=== PATIENT | male | born 1940 | race Caucasian/White ===

== ENCOUNTER → 2018-08-02 08:34 | Outpatient (BNVA) | payer MEDICARE, BC, SELFPAY | PROVIDERS: PCP Internal Medicine; Visit Provider Psychiatry & Neurology Neurology | DX: H46.9 Unspecified optic neuritis (principal); G25.0 Essential tremor; E11.42 Type 2 diabetes mellitus with diabetic polyneuropathy; Z79.84 Long term (current) use of oral hypoglycemic drugs; I10 Essential (primary) hypertension | CPT/HCPCS: 99205; 99214 ==

== ENCOUNTER 2018-08-02 10:08 | Outpatient (CLI) | payer MEDICARE, BC, SELFPAY ==
[2018-08-02 12:25] LABS: Vitamin B12 1111 pg/mL (193-986)
[2018-08-02 12:29] LABS: ESR 10 MM/HR (1-20)
[2018-08-02 12:31] LABS: Folate > 20.0 ng/mL (8.6-20.0)
[2018-08-02 12:38] LABS: C-Reactive Protein 0.15 mg/dL (0.0-0.3)
[2018-08-03 10:32] LABS: Rheumatoid Factor <8 IU/mL (<12.5)
[2018-08-03 14:18] LABS: ANA Interpretation Negative (NEGAT)
[2018-08-08 11:05] LABS: Thiamine (Vitamin B1), WB 144 nmol/L (70-180)
== END 2018-08-02 10:28 ==
PROVIDERS: PCP Internal Medicine; Visit Provider Psychiatry & Neurology Neurology
DX: H46.9 Unspecified optic neuritis (principal)
CPT/HCPCS: 36415; 85652; 99205; 99214; 82565; 82607; 82746; 84425; 86038; 86140; 86431

== ENCOUNTER 2018-08-11 02:22 | Outpatient (CLI) | payer MEDICARE, BC, SELFPAY ==
--- NOTE | 2018-08-11 06:59 | DI.MRI_ITS ---
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 BRAIN AND ORBIT MRI: MRI examination of the brain and orbits was performed according to the usual protocol including pre and post contrast multiplanar high resolution imaging of the orbits. There is mild generalized cerebral atrophy. 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 Diffusion weighted imaging shows no evidence of cerebral infarction. Susceptibility weighted imaging shows no evidence of hemorrhage. There is normal flow void in the [place]ary[place] of [place] vasculature. The initial axial T2 weighted images show increased signal associated with the left optic nerve. Minimally increased signal may also be present involving right optic nerve. This abnormal signal in left optic nerve is again seen on high resolution T2 fat-sat imaging. There is also a questionable slightly increased signal in right optic nerve. Postcontrast imaging shows suggestion of subtle enhancement associated with left optic nerve. No convincing right optic nerve enhancement identified. The orbital contents otherwise appear normal. No chiasmatic lesion seen. No enhancement or mass identified in the brain. The temporal bone structures appear intact. CONCLUSION: Findings of abnormally high signal and enhancement in left optic nerve as described. Minimally abnormal signal and minimal enhancement may be present in right optic nerve as well. No significant additional lesions identified in the brain. Clinical correlation is requested regarding known MS or other known pathology in this patient.
[2018-08-11] MEDS: Gadoterate meglumine 20 ML VIAL 19 ML IVP (08:32)
[2018-08-11] MEDS: Normal Saline Flush 10 ML SYR IVP (08:33)
== END 2018-08-11 02:42 ==
PROVIDERS: PCP Internal Medicine; Visit Provider Psychiatry & Neurology Neurology
DX: H46.8 Other optic neuritis (principal); H47.092 Other disorders of optic nerve, not elsewhere classified, left eye; H54.7 Unspecified visual loss
CPT/HCPCS: 70553; 70543

== ENCOUNTER 2018-08-25 00:53 | Outpatient (RCR) | payer MEDICARE, BC, SELFPAY ==
[2018-08-21] MEDS: Normal Saline Flush 10 ML SYR IVP (08:57)
[2018-08-22] MEDS: Normal Saline Flush 10 ML SYR IVP (08:10)
[2018-08-23] MEDS: Normal Saline Flush 10 ML SYR IVP (08:18)
[2018-08-24] MEDS: Normal Saline Flush 10 ML SYR IVP (08:15)
[2018-08-25] MEDS: Normal Saline Flush 10 ML SYR IVP (08:30)
[2018-08-29 11:40] LABS: LHON mtDNA Evaluation NEGATIVE
[2018-08-29 11:50] LABS: Misc Referral (MAYO) See Comments
[2018-08-30 13:40] LABS: NMO/AQP4 IgG FACS Negative (Negative)
== END 2018-09-01 23:59 | disposition home or self-care (01) ==
LOC: INF 00:53
PROVIDERS: PCP Internal Medicine; Visit Provider Psychiatry & Neurology Neurology
DX: H46.9 Unspecified optic neuritis (principal)
CPT/HCPCS: 36415; 81401; 86255; 96365; 83891; 83892; 83894; 83898; 83909; 83912; J2930

== ENCOUNTER → 2018-09-07 08:40 | Outpatient (BNVA) | payer MEDICARE, BC, SELFPAY | PROVIDERS: PCP Internal Medicine; Visit Provider Psychiatry & Neurology Neurology | DX: H46.9 Unspecified optic neuritis (principal); E11.42 Type 2 diabetes mellitus with diabetic polyneuropathy; Z79.84 Long term (current) use of oral hypoglycemic drugs; I10 Essential (primary) hypertension | CPT/HCPCS: 99213 ==

== ENCOUNTER 2019-02-05 09:45 | Outpatient (REF) | payer MEDICARE, BC, SELFPAY ==
[2019-02-05 12:59] LABS: Anion Gap 12.2 mmol/L (3-11); BUN 20 mg/dL (7-18); CO2 27.8 mmol/L (21.0-32.0); CREATININE 1.13 mg/dL (0.70-1.30); Calcium 9.3 mg/dL (8.5-10.1); Calculated LDL 43 mg/dL; Chloride 101 mmol/L (98-107); Cholesterol 124 mg/dL (50-200); Glucose 220 mg/dL (70-100); HDL Cholesterol 41 mg/dL (40-60); Potassium 3.8 mmol/L (3.5-5.1); Sodium 141 mmol/L (136-145); Triglyceride 200 mg/dL (30-150)
== END 2019-02-05 10:05 ==
LOC: NCHCN 09:45
PROVIDERS: PCP Internal Medicine; Visit Provider Internal Medicine
DX: I10 Essential (primary) hypertension (principal); Z13.6 Encounter for screening for cardiovascular disorders
CPT/HCPCS: 80048; 80061

== ENCOUNTER 2019-09-28 20:28 | Emergency (ER) | payer MEDICARE, BC, SELFPAY ==
[2019-09-28 20:33] VITALS: BP 178/92; PULSE 102; TEMP 36.9; O2SAT 97
--- NOTE | 2019-09-28 20:47 | W.ED.GENAD ---
Discharge Plan Disposition Patient Disposition: HOME Condition: Stable Discharge Details Chief Complaint: Laceration Clinical Impression: Fracture, finger, distal phalanx, open, Avulsion of nail, Crush injury to finger Primary Care Provider: Tito Austin ED Provider: Delmi Zamarripa Home Meds and New Rx's Prescriptions: New cephalexin [Keflex] 500 mg capsule 500 mg PO QID 7 Days Qty: 28 RF: 0 Continued metformin 500 mg tablet 500 mg PO BID RF: 0 amlodipine 5 mg tablet 5 mg PO DAILY RF: 0 venlafaxine [Effexor XR] 75 MG capsule,extended release 24hr 75 mg PO DAILY RF: 0 aspirin [Ecotrin Low Strength] 81 MG tablet,delayed release (DR/EC) 81 mg PO DAILY RF: 0 nitroglycerin [Nitrostat] 0.4 MG tablet, sublingual 0.4 mg Sublingual PRN RF: 0 omeprazole [Prilosec] 20 MG capsule,delayed release(DR/EC) 20 mg PO DAILY RF: 0 losartan [Cozaar] 100 MG tablet 100 mg PO DAILY RF: 0 torsemide 5 MG tablet 5 mg PO DAILY RF: 0 yudqbktgorwu-ibikyyav-nyzoyx tablet 1 tab PO DAILY RF: 0 cyanocobalamin (vitamin B-12) [Vitamin B-12] 1,000 mcg tablet extended release 1,000 mcg PO DAILY RF: 0 Hold Instructions: Home Medication placed on hold at Doctor's office cholecalciferol (vitamin D3) 1,000 unit capsule 1,000 unit PO DAILY RF: 0 ibuprofen 800 MG tablet 800 mg PO TID PRN PRNQty: 30 RF: 0 Discharge Instructions Instructions: Finger Fracture (ED), Finger Laceration (ED), Crush Injury (ED) Additional Instructions: Keep wound clean and dry and covered. Take antibiotics until finished. Call orthopedics on Tuesday morning to schedule a follow-up appointment for reevaluation. Return to the emergency department if he develop any worsening or concerning symptoms such as fever, increased pain, redness or swelling. Referrals: Shaheen Nagy MD [ [facility] STAFF PHYSICIAN] - Discharge Data Discharge Physician: Delmi Zamarripa Medical Decision Making 79-year-old male presents with right fifth finger crush injury after caught between snowplow and another piece of equipment while attempting to lift snowplow. Unknown tetanus status. Tetanus given here. Nail removed by patient as only small part was left remaining. There is a laceration on volar aspect of distal fifth finger as well as jagged laceration through nail bed and distal dorsal finger. No fifth nail present. Patient referred for x-ray which notes fracture of distal phalanx. Finger was soaked in saline and Hibiclens. Patient was given 1 g of Keflex here. Chart notes an allergy to cefixime, however this causes shakes with no report of anaphylaxis. Case discussed with who states that patient has tolerated Keflex in the past. Keflex given to go as well as prescription. 7 sutures placed on dorsal aspect and 3 sutures placed on volar aspect. Patient placed in finger splint. Patient placed on orthopedic follow-up list. He was advised to call orthopedics on Tuesday morning for follow-up and possible suture removal. He was advised that he could return to the emergency department if directed by orthopedics for suture removal here in 7 days. Usual and customary return precautions given prior to discharge. Medical Records Medical records reviewed: Yes I reviewed the patient's medical records. Imaging Data Radiologic Study: Radiologist's impression: XR Right Finger(s) Exam date and time: 09/28/2019 9:00 PM Age: 79 years old Clinical indication: Injury or trauma; Injury history: Crush injury, pinky caught in hinge of snowplow; Initial encounter; Crushing; Right; Little finger; Injury date: 09/28/19 TECHNIQUE: Imaging protocol: XR Left fingers. Views: Minimum 2 views. COMPARISON: No relevant prior studies available. FINDINGS: Bones/joints: Fracture distal 5th phalanx. Skin defect. Degenerative changes of the 5th DIP joint. Soft tissues: Soft tissue swelling. IMPRESSION: Fractured 5th distal phalanx with skin defect. HPI General Mode of arrival: ambulatory. Date/Time Provider Initiated Documentation: 09/28/19 20:40. Limitations to Documentation: no limitations. Information obtained by: patient. HPI Narrative: Patient is a 79-year-old male who presents with right fifth finger injury after crushed between a piece of equipment and a snowplow when attempting to lift the snowplow into a trailer. Patient states the nail was hanging by a thread so he pulled it off near the base. He is unsure of his tetanus status. Related Data Home Medications Medication Instructions Recorded Confirmed aspirin [Ecotrin Low Strength] 81 mg PO DAILY tab-cap 04/22/14 09/28/19 losartan [Cozaar] 100 mg PO DAILY tab-cap 04/22/14 09/28/19 nitroglycerin [Nitrostat] 0.4 mg SUBLINGUAL PRN 04/22/14 09/28/19 omeprazole [Prilosec] 20 mg PO DAILY tab-cap 04/22/14 09/28/19 venlafaxine [Effexor XR] 75 mg PO DAILY tab-cap 04/22/14 09/28/19 ibuprofen 800 mg PO TID PRN PRN #30 tab 09/09/14 09/28/19 torsemide 5 mg PO DAILY tab-cap 04/20/17 09/28/19 cholecalciferol (vitamin D3) 25 1,000 unit PO DAILY 07/25/18 09/28/19 mcg (1,000 unit) capsule cyanocobalamin (vitamin B-12) 1,000 mcg PO DAILY 07/25/18 09/28/19 1,000 mcg tablet,extended release xdxdxcwtwmya-svuubtgf-zvkvqp 1 tab PO DAILY 07/25/18 09/28/19 amlodipine 5 mg tablet 5 mg PO DAILY 08/02/18 09/28/19 metformin 500 mg tablet 500 mg PO BID tab 08/02/18 09/28/19 cephalexin [Keflex] 500 mg PO QID 7 Days #28 cap 09/28/19 Previous Rx's Medication Instructions Recorded ibuprofen 800 mg PO TID PRN PRN #30 tab 09/09/14 cephalexin [Keflex] 500 mg PO QID 7 Days #28 cap 09/28/19 Allergies Allergy/AdvReac Type Severity Reaction Status Date / Time cefixime [From Suprax] AdvReac shakes Unverified 09/28/19 20:39 fluticasone propionate AdvReac nose bleeds Unverified 09/28/19 20:39 [From Flonase] hydrochlorothiazide AdvReac hypertensio Unverified 09/28/19 20:39 n General Stated Complaint: Laceration SKIP: 4 Review of Systems All systems reviewed & are unremarkable except as noted in HPI and below PFSH Social History Smoking/Tobacco Use Status: Former Tobacco Use Alcohol Intake: never Drug use: Never current occupation: Retired Do you feel safe at home: Yes Do you feel safe in your relationship?: Yes Exam Const General: cooperative, healthy appearing and no acute distress HENMT Head: normal to inspection Mouth: oral mucosae normal Eyes General: appearance normal, both eyes and all related structures Neck Neck: normal visual inspection Resp Effort & Inspection: normal respiratory effort and able to speak in complete sentences Cardio Rate: regular rate Skin General skin exam: no rashes or lesions noted Neuro General: patient alert, patient awake and patient oriented x3 Motor: muscle tone normal throughout Extrem Right upper extremity: hand Details: normal capillary refill, neuromotor exam normal (Normal flexion and extension, abduction and adduction to right fifth finger), neurosensory exam normal, tendon exam normal Location: of the 5th digit and normal ROM of fingers Hand/finger images: 1. 1.5 cm laceration on volar aspect of right fifth finger near the DIP joint. 2. 2 cm T-shaped jagged laceration extending through skin of nailbed and cuticle onto distal aspect of dorsal distal phalanx. No obvious foreign bodies noted. No obvious bony deformities noted. Psych Appearance: grossly normal Affect: normal affect Course Vital Signs Vital signs: Vital Signs Temperature 98.4 F 09/28/19 20:33 Pulse 102 H 09/28/19 20:33 Blood Pressure 178/92 H 09/28/19 20:33 Pulse Oximetry 97 09/28/19 20:33 Temperature 98.4 F 09/28/19 20:33 Temperature Source Skin 09/28/19 20:33 Pulse 102 H 09/28/19 20:33 Respiratory Effort Non-Labored 09/28/19 20:41 Blood Pressure 178/92 H 09/28/19 20:33 Blood Pressure Position Sitting 09/28/19 20:33 Pulse Oximetry 97 09/28/19 20:33 Oxygen Delivery Method Room Air 09/28/19 20:33 Oxygen Flow Rate 0 09/28/19 20:33 Pain Level 5 09/28/19 20:42 Procedures Laceration Laceration 1: Site: hand (5th finger) Side (If applicable): right Size (cm): 4 Description: irregular Depth: simple, single layer Local Anesthetic: Lidocaine 1% Amount of anesthesia used (mL): 5 Pre-repair: wound explored, irrigated extensively and deep structures intact Skin layer closed with: nylon Size (cm): 5-0 Number of sutures: 10 (3 on volar aspect, 7 on dorsal aspect) Technique: simple, interrupted
--- NOTE | 2019-09-28 20:59 | DI.RAD_ITS ---
EXAM: XR FINGER RT LITTLE CLINICAL HISTORY: r/o fx/foreign body distal phalanx. TECHNIQUE: 2D digital imaging was performed. COMPARISON: No exams were available for comparison FINDINGS: BONES: There is an acute fracture involving the proximal metaphysis of the distal phalanx of the righ t little finger. There is 1-2 mm of anterior displacement of the distal fracture noted. There is a lucency seen through the posterior aspect of the base of the distal phalanx suggesting a small avulse d fracture. This is best appreciated on the lateral view.. No bony destructive lesion is seen. JOINTS: No dislocation present. SOFT TISSUE: There is a soft tissue laceration in the distal finger. No radiopaque foreign body is s een. IMPRESSION: Minimally displaced fracture involving the distal phalanx of the right 5th finger as described above. DATA REPOSITORY: RADIATION DOSE DELIVERED:
--- NOTE | 2019-09-28 21:12 | DI.VRAD_ITS ---
Addendum created by Lila Tomlinson MD on 09/28/2019 11:14:57 PM EDT Per the technologist the images are of the right hand as labeled on the film. The order however states left fingers. The new order has been corrected stating right fingers. Initial report created on 09/28/2019 9:12:10 PM EDT PROCEDURE INFORMATION: Exam: XR Left Finger(s) Exam date and time: 09/28/2019 9:00 PM Age: 79 years old Clinical indication: Injury or trauma; Injury history: Crush injury, pinky caught in hinge of snowplow; Initial encounter; Crushing; Right; Little finger; Injury date: 09/28/19 TECHNIQUE: Imaging protocol: XR Left fingers. Views: Minimum 2 views. COMPARISON: No relevant prior studies available. FINDINGS: Bones/joints: Fracture distal 5th phalanx. Skin defect. Degenerative changes of the 5th DIP joint. Soft tissues: Soft tissue swelling. IMPRESSION: Fractured 5th distal phalanx with skin defect. Dictated and Authenticated by: Lila Tomlinson MD. Ordering:NEO Awad MD
[2019-09-28] MEDS: Cephalexin 500 MG CAP 1000 MG PO (21:44)
[2019-09-28 22:43] VITALS: BP 152/77; PULSE 84; RESP 20; TEMP 36.7; O2SAT 94
[2019-09-28 23:02] VITALS: BP 152/77; PULSE 84; RESP 20; TEMP 36.7; O2SAT 94
== END 2019-09-28 23:08 | disposition home or self-care (01) ==
PROVIDERS: Emergency Provider Physician Assistant; PCP Internal Medicine
DX: S67.197A Crushing injury of left little finger, initial encounter (principal); S62.636B Displaced fracture of distal phalanx of right little finger, initial encounter for open fracture; W23.1XXA Caught, crushed, jammed, or pinched between stationary objects, initial encounter
CPT/HCPCS: 12002; 26750; 90471; 73140

== ENCOUNTER 2019-10-01 09:46 | Emergency (ER) | payer MEDICARE, BC, SELFPAY ==
[2019-10-01 09:50] VITALS: BP 166/88; PULSE 95; RESP 16; TEMP 36.5; O2SAT 96
--- NOTE | 2019-10-01 09:57 | W.ED.GENAD ---
Discharge Plan Disposition Patient Disposition: HOME Condition: Stable Discharge Details Chief Complaint: Orthopedic Clinical Impression: Encounter for wound re-check Primary Care Provider: Tito Austin ED Provider: Delmi Zamarripa Home Meds and New Rx's Prescriptions: Continued metformin 500 mg tablet 500 mg PO BID RF: 0 amlodipine 5 mg tablet 5 mg PO DAILY RF: 0 venlafaxine [Effexor XR] 75 MG capsule,extended release 24hr 75 mg PO DAILY RF: 0 aspirin [Ecotrin Low Strength] 81 MG tablet,delayed release (DR/EC) 81 mg PO DAILY RF: 0 nitroglycerin [Nitrostat] 0.4 MG tablet, sublingual 0.4 mg Sublingual PRN RF: 0 omeprazole [Prilosec] 20 MG capsule,delayed release(DR/EC) 20 mg PO DAILY RF: 0 losartan [Cozaar] 100 MG tablet 100 mg PO DAILY RF: 0 torsemide 5 MG tablet 5 mg PO DAILY RF: 0 hjuehvketdtc-qfcalnsz-wnvwcb tablet 1 tab PO DAILY RF: 0 cyanocobalamin (vitamin B-12) [Vitamin B-12] 1,000 mcg tablet extended release 1,000 mcg PO DAILY RF: 0 Hold Instructions: Home Medication placed on hold at Doctor's office cholecalciferol (vitamin D3) 1,000 unit capsule 1,000 unit PO DAILY RF: 0 ibuprofen 800 MG tablet 800 mg PO TID PRN PRNQty: 30 RF: 0 cephalexin [Keflex] 500 mg capsule 500 mg PO QID 7 Days Qty: 28 RF: 0 Discharge Instructions Instructions: Care For Your Stitches (ED) Additional Instructions: Keep wound clean, dry and covered. If dressing becomes wet or dirty, you can remove, wash finger with soap and water and then pat dry and replace dressing. If you are resting at home, you can keep the wound open to air without dressing. If there is risk of contamination, be sure to cover wound with dressing. Take the antibiotics until finished. Follow-up with your scheduled appointment with orthopedics on morning. Return to the emergency department if you develop any worsening or concerning symptoms such as fever, increased pain, redness or swelling. Discharge Data Discharge Physician: Delmi Zamarripa Medical Decision Making 79yo M 3 days s/p crush injury with finger fracture, nail avulsion and suture placement to R 5th finger presents for dressing change. No acute complaints. Pt appears well and nontoxic. Wound is healing very well. No signs of cellulitis. Wound was washed with soap and water and bacitracin and tube gauze applied. Pt advised on proper wound care at home and was sent with supplies. Advised to f/u with scheduled appt with ortho on . Usual and customary return precautions given prior to discharge. Medical Records Medical records reviewed: Yes I reviewed the patient's medical records. HPI General Mode of arrival: ambulatory. Date/Time Provider Initiated Documentation: 10/01/19 09:47. Limitations to Documentation: no limitations. Information obtained by: patient. HPI Narrative: Pt is a 79yo M 3 days s/p crush injury to R 5th finger diagnoses with finger fracture, nail avulsion with suture and splint placement presents for dressing change. Pt states he has an appointment with orthopedics on but was nervous about waiting til then for dressing change so came here for it. He denies fever and states the wound has been healing. He has been taking the antibiotics w/o difficulty. Related Data Home Medications Medication Instructions Recorded Confirmed aspirin [Ecotrin Low Strength] 81 mg PO DAILY tab-cap 04/22/14 10/01/19 losartan [Cozaar] 100 mg PO DAILY tab-cap 04/22/14 10/01/19 nitroglycerin [Nitrostat] 0.4 mg SUBLINGUAL PRN 04/22/14 10/01/19 omeprazole [Prilosec] 20 mg PO DAILY tab-cap 04/22/14 10/01/19 venlafaxine [Effexor XR] 75 mg PO DAILY tab-cap 04/22/14 10/01/19 ibuprofen 800 mg PO TID PRN PRN #30 tab 09/09/14 10/01/19 torsemide 5 mg PO DAILY tab-cap 04/20/17 10/01/19 cholecalciferol (vitamin D3) 25 1,000 unit PO DAILY 07/25/18 10/01/19 mcg (1,000 unit) capsule cyanocobalamin (vitamin B-12) 1,000 mcg PO DAILY 07/25/18 10/01/19 1,000 mcg tablet,extended release mtcjebccxqou-ghbfbsdi-ashaso 1 tab PO DAILY 07/25/18 10/01/19 amlodipine 5 mg tablet 5 mg PO DAILY 08/02/18 10/01/19 metformin 500 mg tablet 500 mg PO BID tab 08/02/18 10/01/19 cephalexin [Keflex] 500 mg PO QID 7 Days #28 cap 09/28/19 10/01/19 Previous Rx's Medication Instructions Recorded ibuprofen 800 mg PO TID PRN PRN #30 tab 09/09/14 cephalexin [Keflex] 500 mg PO QID 7 Days #28 cap 09/28/19 Allergies Allergy/AdvReac Type Severity Reaction Status Date / Time cefixime [From Suprax] AdvReac shakes Unverified 10/01/19 09:52 fluticasone propionate AdvReac nose bleeds Unverified 10/01/19 09:52 [From Flonase] hydrochlorothiazide AdvReac hypertensio Unverified 10/01/19 09:52 n General Stated Complaint: Orthopedic SKIP: 4 Review of Systems All systems reviewed & are unremarkable except as noted in HPI and below Constitutional Constitutional: Reports as per HPI, Denies chills and Denies fever(s) Eyes Eyes: Denies blurry vision ENT Ears, Nose, Mouth, and Throat: Denies dizziness, Denies sore throat and Denies throat swelling Cardiovascular Cardiovascular: Denies chest pain and Denies dyspnea Respiratory Respiratory: Denies cough and Denies dyspnea Gastrointestinal Gastrointestinal: Denies abdominal pain, Denies diarrhea and Denies vomiting Genitourinary Genitourinary: Denies hematuria and Denies dysuria Musculoskeletal Musculoskeletal: Denies back pain and Denies numbness Integumentary/Breasts Skin/Breast: Denies lesions and Denies rash Neurologic Neurologic: Denies dizziness, Denies localized weakness and Denies numbness Allergic/Immunologic Allergic/Immunologic: Denies throat swelling [facility] Social History Smoking/Tobacco Use Status: Former Tobacco Use Alcohol Intake: never Drug use: Never current occupation: Retired Do you feel safe at home: Yes Do you feel safe in your relationship?: Yes Exam Const General: cooperative, healthy appearing and no acute distress HENMT Head: normal to inspection Mouth: oral mucosae normal Eyes General: appearance normal, both eyes and all related structures Neck Neck: normal visual inspection Resp Effort & Inspection: normal respiratory effort and able to speak in complete sentences Cardio Rate: regular rate Skin General skin exam: no rashes or lesions noted Neuro General: patient alert, patient awake and patient oriented x3 Motor: muscle tone normal throughout Extrem Other: R 5th finger laceration, [address] Wound healing well. No surrounding erythema, edema, ecchymoses. Full ROM. Psych Appearance: grossly normal Affect: normal affect Course Vital Signs Vital signs: Vital Signs Temperature 97.7 F 10/01/19 09:50 Pulse 95 H 10/01/19 09:50 Respiratory Rate 16 10/01/19 09:50 Blood Pressure 166/88 H 10/01/19 09:50 Pulse Oximetry 96 10/01/19 09:50 Temperature 97.7 F 10/01/19 09:50 Temperature Source Skin 10/01/19 09:50 Pulse 95 H 10/01/19 09:50 Respiratory Rate 16 10/01/19 09:50 Respiratory Effort 10/01/19 09:53 Blood Pressure 166/88 H 10/01/19 09:50 Blood Pressure Position Sitting 10/01/19 09:50 Pulse Oximetry 96 10/01/19 09:50 Oxygen Delivery Method Room Air 10/01/19 09:50 Oxygen Flow Rate 0 10/01/19 09:50
== END 2019-10-01 10:08 | disposition home or self-care (01) ==
PROVIDERS: Emergency Provider Physician Assistant; PCP Internal Medicine
DX: S67.196A Crushing injury of right little finger, initial encounter (principal); W23.1XXA Caught, crushed, jammed, or pinched between stationary objects, initial encounter; Z48.01 Encounter for change or removal of surgical wound dressing

== ENCOUNTER → 2019-10-04 07:34 | Outpatient (BNVA) | payer MEDICARE, BC, SELFPAY | PROVIDERS: PCP Internal Medicine; Referring Provider Internal Medicine; Visit Provider Student in an Organized Health Care Education/Training Program | DX: S67.196A Crushing injury of right little finger, initial encounter (principal); S62.636B Displaced fracture of distal phalanx of right little finger, initial encounter for open fracture; W23.1XXA Caught, crushed, jammed, or pinched between stationary objects, initial encounter | CPT/HCPCS: 99203; 99214 ==

== ENCOUNTER 2020-03-04 10:36 | Outpatient (REF) | payer MEDICARE, BC, SELFPAY ==
[2020-03-04 23:41] LABS: BUN 20 mg/dL (7-18); CREATININE 1.26 mg/dL (0.70-1.30); Calcium 8.8 mg/dL (8.5-10.1); Chloride 104 mmol/L (98-107); Estimated GFR 55.21 (mL/min/1.73m2); Glucose 162 mg/dL (74-106); Potassium 3.7 mmol/L (3.5-5.1); Sodium 140 mmol/L (136-145)
== END 2020-03-04 10:56 ==
LOC: NCHCN 10:36
PROVIDERS: PCP Internal Medicine; Visit Provider Internal Medicine
DX: I10 Essential (primary) hypertension (principal); E11.9 Type 2 diabetes mellitus without complications; F32.9 Major depressive disorder, single episode, unspecified
CPT/HCPCS: 80048

== ENCOUNTER 2021-03-03 10:11 | Outpatient (REF) | payer MEDICARE, BC, SELFPAY ==
[2021-03-03 15:12] LABS: Anion Gap 12.1 mmol/L (3-11); BUN 28 mg/dL (7-18); CO2 26.9 mmol/L (21.0-32.0); CREATININE 1.2 mg/dL (0.70-1.30); Calcium 8.9 mg/dL (8.5-10.1); Chloride 102 mmol/L (98-107); Estimated GFR 58.26 (mL/min/1.73m2); Glucose 122 mg/dL (74-106); Potassium 3.8 mmol/L (3.5-5.1); Sodium 141 mmol/L (136-145)
== END 2021-03-03 10:12 | disposition home or self-care (01) ==
LOC: NCHCN 10:11
PROVIDERS: PCP Internal Medicine; Visit Provider Internal Medicine
DX: E11.9 Type 2 diabetes mellitus without complications (principal); I10 Essential (primary) hypertension; K21.9 Gastro-esophageal reflux disease without esophagitis
CPT/HCPCS: 80048

== ENCOUNTER 2021-12-28 13:25 | Outpatient (REF) | payer MEDICARE, BC, SELFPAY ==
[2021-12-28 15:39] LABS: Anion Gap 9.6 mmol/L (3-11); BUN 26 mg/dL (7-18); CO2 27.4 mmol/L (21.0-32.0); CREATININE 1.4 mg/dL (0.70-1.30); Calcium 9.5 mg/dL (8.5-10.1); Chloride 104 mmol/L (98-107); Estimated GFR 50.81 (mL/min/1.73m2); Glucose 131 mg/dL (74-106); Potassium 3.7 mmol/L (3.5-5.1); Sodium 141 mmol/L (136-145)
== END 2021-12-28 13:26 | disposition home or self-care (01) ==
LOC: NCHCN 13:25
PROVIDERS: PCP Internal Medicine; Visit Provider Internal Medicine
DX: E11.9 Type 2 diabetes mellitus without complications (principal); I10 Essential (primary) hypertension; K21.9 Gastro-esophageal reflux disease without esophagitis; F32.A Depression, unspecified; G47.33 Obstructive sleep apnea (adult) (pediatric)
CPT/HCPCS: 80048

== ENCOUNTER 2022-04-27 16:46 | Outpatient (REF) | payer MEDICARE, BC, SELFPAY ==
[2022-04-27 14:16] LABS: Abs Immature Grans 0.05 10^3/uL (0.0-0.06); Absolute Basophil Count 0.06 10^3/uL (0.0-0.2); Absolute Eosinophil Count 0.11 10^3/uL (0.0-0.7); Absolute Lymphocyte Count 1.02 10^3/uL (1.2-3.4); Absolute Monocyte Count 0.39 10^3/uL (0.1-0.8); Absolute Neutrophil Count 5.05 10^3/uL (1.2-6.7); Basophils % 0.9; Eosinophils % 1.6; HGB 14.4 g/dL (13.5-17.5); Immature Grans % 0.7; Lymphocytes % 15.3; MCH 32.4 pg (27.0-33.0); MCHC 34.3 % (32.0-36.0); MCV 95 fL (80-95); MPV 10.4 fL (8.0-11.0); Monocytes % 5.8; Neutrophils % 75.7; Platelet Count 295 10^3/uL (130-400); RBC 4.44 10^6/uL (4.36-5.78); RDW 11.9 % (11.8-14.1); RDW-SD 41.2 fL; WBC 6.68 10^3/uL (4.4-10.8)
[2022-04-27 15:20] LABS: ALT 18 U/L (16-63); AST 23 U/L (15-37); Albumin 4.4 g/dL (3.4-5.0); Alkaline Phosphatase 68 U/L (46-116); Anion Gap 11.1 mmol/L (3-11); BUN 33 mg/dL (7-18); Bilirubin, Total 0.8 mg/dL (0.2-1.0); CO2 24.9 mmol/L (21.0-32.0); CREATININE 1.3 mg/dL (0.70-1.30); Calcium 9.5 mg/dL (8.5-10.1); Chloride 102 mmol/L (98-107); Estimated GFR 55.19 (mL/min/1.73m2); Glucose 139 mg/dL (74-106); Potassium 3.9 mmol/L (3.5-5.1); Sodium 138 mmol/L (136-145); Total Protein 7.3 g/dL (6.4-8.2)
== END 2022-04-27 16:47 | disposition home or self-care (01) ==
LOC: NCHCN 16:46
PROVIDERS: PCP Internal Medicine; Visit Provider Internal Medicine
DX: E11.9 Type 2 diabetes mellitus without complications (principal); I10 Essential (primary) hypertension; N18.31 Chronic kidney disease, stage 3a; K21.9 Gastro-esophageal reflux disease without esophagitis; F32.89 Other specified depressive episodes
CPT/HCPCS: 80053; 85025

== ENCOUNTER 2023-08-30 11:04 | Outpatient (REF) | payer MEDICARE, BC, SELFPAY ==
[2023-08-30 14:52] LABS: HCT 43.8 % (40.0-50.0); HGB 15.1 g/dL (13.5-17.5); MCH 32.8 pg (27.0-33.0); MCHC 34.5 % (32.0-36.0); MCV 95 fL (80-95); MPV 9.7 fL (8.0-11.0); Platelet Count 377 10^3/uL (130-400); RBC 4.61 10^6/uL (4.36-5.78); RDW 12.1 % (11.8-14.1); WBC 7.99 10^3/uL (4.4-10.8)
[2023-08-30 15:08] LABS: ALT 40 U/L (16-63); AST 21 U/L (15-37); Albumin 4.6 g/dL (3.4-5.0); Alkaline Phosphatase 96 U/L (46-116); Anion Gap 12.6 mmol/L (3-11); BUN 40 mg/dL (7-18); Bilirubin, Total 0.6 mg/dL (0.2-1.0); CO2 26.4 mmol/L (21.0-32.0); CREATININE 1.4 mg/dL (0.70-1.30); Calcium 9.3 mg/dL (8.5-10.1); Chloride 102 mmol/L (98-107); Estimated GFR 50.18 (mL/min/1.73m2); Glucose 128 mg/dL (74-106); Magnesium 1.9 mg/dL (1.8-2.4); Potassium 4.2 mmol/L (3.5-5.1); Sodium 141 mmol/L (136-145); Total Protein 7.5 g/dL (6.4-8.2)
== END 2023-08-30 11:05 | disposition home or self-care (01) ==
LOC: NCHCN 11:04
PROVIDERS: PCP Internal Medicine; Visit Provider Family Medicine
DX: E11.9 Type 2 diabetes mellitus without complications (principal); I10 Essential (primary) hypertension
CPT/HCPCS: 80053; 85027; 83735

== ENCOUNTER 2024-03-08 16:25 | Outpatient (REF) | payer MEDICARE, BC, SELFPAY ==
[2024-03-08 16:15] LABS: BUN 30 mg/dL (7-18); CREATININE 1.3 mg/dL (0.70-1.30); Calcium 9.3 mg/dL (8.5-10.1); Chloride 105 mmol/L (98-107); Estimated GFR 54.51 (mL/min/1.73m2); Glucose 133 mg/dL (74-106); Sodium 144 mmol/L (136-145)
[2024-03-08 16:23] LABS: COMMENT (LAB VIEW ONLY) 194.46 mg/dL; Microalb ug/mg Crea 18.9 ug/mg Cr
== END 2024-03-08 16:26 | disposition home or self-care (01) ==
LOC: NCHCN 16:25
PROVIDERS: PCP Family Medicine; Visit Provider Family Medicine
DX: E11.9 Type 2 diabetes mellitus without complications (principal); I10 Essential (primary) hypertension
CPT/HCPCS: 80048; 82043; 82570

== ENCOUNTER 2024-03-15 02:34 | Outpatient (CLI) | payer MEDICARE, BC, SELFPAY ==
--- NOTE | 2024-03-15 09:28 | DI.RAD_ITS ---
Exam(s) XR THUMB LT EXAM: XR THUMB LT CLINICAL HISTORY: Osteoarthritis, M19.90. TECHNIQUE: 2D digital imaging was performed. COMPARISON: CR,XR XR FINGER RT LITTLE from 09/28/2019 FINDINGS: 3 views No evidence of acute fracture or dislocation. Bone density normal. No osseous lesions. No radiopaq ue foreign bodies. There is moderate-advanced degenerative change at the 1st carpometacarpal joint. Metacarpophalangeal joint of the thumb appears unremarkable. There are also some degenerative changes at the interphala ngeal joint of the thumb. IMPRESSION: Degenerative changes at the 1st carpometacarpal joint of the left thumb as well as at the interphalan geal joint left thumb. DATA REPOSITORY: RADIATION DOSE DELIVERED:
--- NOTE | 2024-03-15 09:28 | DI.RAD_ITS ---
Exam(s) XR THUMB RT EXAM: XR THUMB RT CLINICAL HISTORY: Osteoarthritis, M19.90. TECHNIQUE: 2D digital imaging was performed. COMPARISON: CR XR THUMB LT from 03/15/2024 FINDINGS: 3 views No evidence fracture or dislocation. There mild-moderate degenerative changes at the interphalangeal joint of the right thumb, similar to the opposite side. The metacarpophalangeal joint of the thumb appears unremarkable. There are minim al degenerative changes at the 1st carpometacarpal joint, less than is evident at this articulation i n the opposite-left wrist. IMPRESSION: Only minimal degenerative change in the 1st carpometacarpal joint of the right thumb. The amount of degenerative change at this articulation is significantly more on the opposite-left side. Some degenerative change in the interphalangeal joint of the right thumb is similar to the opposite s ana. DATA REPOSITORY: RADIATION DOSE DELIVERED:
== END 2024-03-15 02:54 ==
LOC: DI 02:34
PROVIDERS: PCP Family Medicine; Visit Provider Family Medicine
DX: M19.042 Primary osteoarthritis, left hand (principal)
CPT/HCPCS: 73140

== ENCOUNTER → 2024-10-01 09:56 | Outpatient (BNVA) | payer MEDICARE, BC, SELFPAY | PROVIDERS: PCP Family Medicine; Referring Provider Family Medicine; Visit Provider Student in an Organized Health Care Education/Training Program | DX: M18.11 Unilateral primary osteoarthritis of first carpometacarpal joint, right hand (principal); M18.12 Unilateral primary osteoarthritis of first carpometacarpal joint, left hand; G56.02 Carpal tunnel syndrome, left upper limb | CPT/HCPCS: 99213; 20611; 20604; 99214; J1010 ==

== ENCOUNTER 2024-10-09 10:47 | Day surgery (SDC) | payer MEDICARE, BC, SELFPAY ==
--- NOTE | 2024-10-09 07:53 | W.PM.DSUDISC ---
Date of service: 10/09/24 Discharge Plan Disposition Condition: Good Discharge Details Attending Provider: Shaheen Nagy Primary Care Provider: Fredi Panchal Home Meds and New Rx's Prescriptions: New hydrocodone-acetaminophen 5-325 mg tablet 1 tab PO Q6H PRN (Reason: severe pain) Qty: 4 0RF Rx Instructions: Take one tablet up to every 6 hours as needed for severe postoperative pain Continued amlodipine 5 mg tablet 5 mg PO DAILY venlafaxine [Effexor XR] 75 MG capsule,extended release 24hr 75 mg PO DAILY aspirin [Ecotrin Low Strength] 81 MG tablet,delayed release (DR/EC) 81 mg PO DAILY nitroglycerin [Nitrostat] 0.4 MG tablet, sublingual 0.4 mg Sublingual PRN Patient Comments: 12/12/14 Pt states not needed to date. PG omeprazole [Prilosec] 20 MG capsule,delayed release(DR/EC) 20 mg PO DAILY losartan [Cozaar] 100 MG tablet 100 mg PO DAILY torsemide 5 MG tablet 5 mg PO DAILY gcnndzxvhzql-pthrgwjl-vxkgei tablet 1 tab PO DAILY cyanocobalamin (vitamin B-12) [Vitamin B-12] 1,000 mcg tablet extended release 1,000 mcg PO DAILY cholecalciferol (vitamin D3) 1,000 unit capsule 1,000 unit PO DAILY loratadine 10 mg tablet 10 mg PO DAILY meclizine 25 mg tablet 25 mg PO QID PRN metformin 500 mg tablet 500 mg PO DAILY ibuprofen 800 MG tablet 800 mg PO TID PRN PRNQty: 30 0RF Discharge Instructions Stand Alone Forms: Lilo Stephens Tunnel Release Referrals: Shaheen Nagy MD [ [facility] STAFF PHYSICIAN, Orthopaedic Surgical] Activity:: Elevate Remove Dressings/Wound Care:: 48 hours Shower/Bathe:: 48 hours Activity:: Activity as Tolerated Diet:: As Tolerated
[2024-10-09 10:59] VITALS: BP 172/96; PULSE 96; RESP 16; TEMP 36; O2SAT 95
[2024-10-09] MEDS: Cephalexin 500 MG CAP 1000 MG PO (12:41)
[2024-10-09] MEDS: Lidocaine 1% Multi-Dose W/EPI 1/100,000 50 ML VIAL (13:12)
[2024-10-09] MEDS: Sodium Bicarbonate 50 MEQ/50 ML VIAL (13:12)
[2024-10-09 13:37] VITALS: BP 137/83; PULSE 92; RESP 16; TEMP 36; O2SAT 95
--- NOTE | 2024-10-09 19:16 | W.PM.OP ---
Operative Note Operative Note PRE-OP DIAGNOSIS: Left Carpal Tunnel Syndrome POST-OP DIAGNOSIS: same PROCEDURE: Left Endoscopic Carpal Tunnel Release SURGEON: Shaheen Nagy ANESTHESIA TYPE: Local By Surgeon Refer to Anesthesia Record ESTIMATED BLOOD LOSS: 0 PATHOLOGY: none sent TOURNIQUET TIME: 6 COMPLICATIONS: None Patient was transported to: same day Patient's condition: stable Indications: I have seen Carlo in clinic for symptoms of carpal tunnel syndrome. The numbness, tingling, and pain limited function. Clinical exam findings confirmed the diagnosis of carpal tunnel syndrome. Nonoperative measures such as bracing, time, activity modifications had been tried but disability and pain persisted. I discussed carpal tunnel release with the patient. I reviewed the risks of the procedure to include, but not limited to, bleeding, infection, pain, stiffness, incomplete release, damage to nerves or vessels, persistent numbness, recurrence. Despite these risks, the patient elected to proceed. Findings: There was tightened carpal tunnel. This was dilated and released successfully with the endoscopic with increased space within the tunnel. The antebrachial fascia was released proximally freeing the median nerve at the wrist. Procedure Description: Carlo was greeted in the preoperative holding area where the correct side was identified and marked. The consent was reviewed with the patient and signed. The history and physical was updated. All questions were answered. He was taken back to the operating room. The patient was placed into the supine position on the operating room table with the left arm on an arm board. A nonsterile tourniquet was placed high onto the arm. All bony prominences were well padded. Prophylactic antibiotics in the form of Cephalexin were administered in DSU. The left arm was then prepped with Chloraprep and draped in a standard fashion with stockinette and extremity drape. A timeout to confirm correct identity, side and site, procedure, allergies, anesthesia, and medical concerns was performed. The surgical site was marked in the volar wrist creases in line with the radial border of the fourth ray. This area was anesthetized with approximately 6cc of 1% Lidocaine. The limb was then exsanguinated with an Esmarch. The skin was incised with a 15 blade, approximately 1cm. The skin only was cut and the deeper tissue was dissected bluntly with a tenotomy scissor, avoiding passing nerve and venous structures. The fascia was penetrated and opened bluntly. A two-prong skin hook was placed under this proximal fascial edge. A series of hamate finders were used to identify and dilate the carpal tunnel. Synovial elevator was used to free synovial attachments to the underside of the transverse carpal ligament. My thumb was kept in the palm to heavenly the distal extent of the carpal tunnel and correctly position the hand. The [employer] endoscope was inserted without difficulty and without resistance. Excellent visualization showed horizontally running fibers of the transverse carpal ligament (TCL). The distal extent of the TCL was visualized and the end of the scope palpated with the thumb. The blade was elevated and withdrawn from distal to proximal. The TCL was split into two flaps. The endoscope was reinserted to confirm complete release and any remnant ligament was incised. The scope was withdrawn and the proximal aspect of the carpal tunnel was grossly inspected and appeared release with the median nerve visible. The antebrachial fascia at the level of the wrist was then freed from the overlying skin and then the underlying median nerve with blunt dissection. This was transected longitudinally for about 3cm proximal to the wrist incision. The wound was then irrigated with easy flow of irrigant distally and proximally. The incision was closed with a single 4-0 Nylon suture. The wound was dressed with Xeroform, Gauze, Kerlix and Mark. The tourniquet was deflated with the initial dressing and held with some pressure. Blood flow returned easily to all digits with capillary refill less than 2 seconds. The patient tolerated the procedure well and was returned to the Same Day Surgery area in a stable condition suffering no known complication. Date of Procedure: 10/09/24
== END 2024-10-09 13:45 | disposition home or self-care (01) ==
LOC: SUR 10:47
PROVIDERS: PCP Family Medicine; Visit Provider Student in an Organized Health Care Education/Training Program
PROC: 01N54ZZ Release Median Nerve, Percutaneous Endoscopic Approach (ICD-10-PCS; CPT 29848; principal; 2024-10-09 13:15)
DX: G56.02 Carpal tunnel syndrome, left upper limb (principal)
CPT/HCPCS: 29848; J2004

== ENCOUNTER → 2024-10-19 10:08 | Outpatient (BNVA) | payer MEDICARE, BC, SELFPAY | PROVIDERS: PCP Family Medicine; Referring Provider Family Medicine; Visit Provider Physician Assistant | DX: Z47.89 Encounter for other orthopedic aftercare (principal); G56.02 Carpal tunnel syndrome, left upper limb | CPT/HCPCS: 99024 ==

== ENCOUNTER 2024-11-29 19:11 | Emergency (ER) | payer MEDICARE, BC, SELFPAY ==
[2024-11-29 19:13] VITALS: BP 185/80; PULSE 109; RESP 18; O2SAT 97
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
[2024-11-29] MEDS: Famotidine 20 MG TAB PO (19:35)
[2024-11-29] MEDS: Loratidine 10 MG TAB PO (19:35)
== END 2024-11-29 19:39 | disposition home or self-care (01) ==
PROVIDERS: Emergency Provider Physician Assistant; PCP Family Medicine
DX: T63.441A Toxic effect of venom of bees, accidental (unintentional), initial encounter (principal)
CPT/HCPCS: 99283

== ENCOUNTER 2024-11-30 16:34 | Emergency (ER) | payer MEDICARE, BC, SELFPAY ==
[2024-11-30 16:34] VITALS: BP 148/80; PULSE 110; RESP 15; TEMP 37.2; O2SAT 94
--- NOTE | 2024-11-30 16:45 | RT.EKG_ITS ---
APPROVED REPORT Exam: Resting ECG Reason for Exam: chest pain Patient Location: E HR:100 bpm ECG Measurements Heart Rate 100 AXIS AZ 186 P 61 QRSd 75 QRS 4 QT 343 T 73 QTc 444 Conclusion Sinus tachycardia...rate> 99 Multiple ventricular premature complexes...V complexes w/ short R-R intervls Normal [place]/Intervals NS ST changes and flattening throughout, no significant change compared to EKG of 09/08/2015
[2024-11-30 17:20] LABS: Abs Immature Grans 0.10 10^3/uL (0.0-0.06); HCT 40.3 % (40.0-50.0); HGB 14.1 g/dL (13.5-17.5); Immature Grans % 0.6 %; MCH 32.6 pg (27.0-33.0); MCHC 35.0 % (32.0-36.0); MCV 93 fL (80-95); MPV 9.6 fL (8.0-11.0); Platelet Count 297 10^3/uL (130-400); RBC 4.33 10^6/uL (4.36-5.78); RDW 11.9 % (11.8-14.1); RDW-SD 40.6 fL; WBC 17.25 10^3/uL (4.4-10.8)
[2024-11-30 17:42] LABS: ALT 45 U/L (16-63); AST 30 U/L (15-37); Albumin 4.4 g/dL (3.4-5.0); Alkaline Phosphatase 78 U/L (46-116); Anion Gap 11.2 mmol/L (3-11); BUN 19 mg/dL (7-18); Bilirubin, Total 0.6 mg/dL (0.2-1.0); CO2 26.8 mmol/L (21.0-32.0); Calcium 8.9 mg/dL (8.5-10.1); Chloride 103 mmol/L (98-107); Creatine Kinase 505 U/L (39-308); Estimated GFR 39.51 (mL/min/1.73m2); Glucose 168 mg/dL (74-106); Potassium 3.7 mmol/L (3.5-5.1); Sodium 141 mmol/L (136-145); Total Protein 7.3 g/dL (6.4-8.2); Troponin I 20 ng/L (<or=76)
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
[2024-11-30] MEDS: Normal Saline - Diluent 50 ML VIAL IJ (17:51)
[2024-11-30] MEDS: Omnipaque 350 MG/ML 100 ML BTL IJ (17:51)
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
[2024-11-30] MEDS: Diph,Pertuss(Acell),Tet Vac/Pf 0.5 ML SYR IM (19:33)
[2024-11-30] MEDS: Clindamycin 150 MG CAP 450 MG PO (19:33)
[2024-11-30] MEDS: Normal Saline 1,000 ML 1000 ML IV (19:34)
[2024-11-30] MEDS: Lidocaine/Epinephri/Tetracaine Topical Gel 3 ML TP (19:34)
== END 2024-11-30 19:38 | disposition home or self-care (01) ==
PROVIDERS: Emergency Provider Physician Assistant; PCP Family Medicine
DX: S01.311A Laceration without foreign body of right ear, initial encounter (principal); R07.89 Other chest pain; Z23 Encounter for immunization; V86.55XA Driver of 3- or 4- wheeled all-terrain vehicle (ATV) injured in nontraffic accident, initial encounter
CPT/HCPCS: 12014; 80053; 82550; 90471; 90715; 93005; 96360; 99285; 71260; 84484; 85025; 93010; 99284; J3490

== ENCOUNTER 2024-12-07 14:18 | Emergency (ER) | payer MEDICARE, BC, SELFPAY ==
[2024-12-07 14:24] VITALS: BP 190/80; PULSE 94; RESP 16; TEMP 36.6; O2SAT 95
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
[2024-12-07 15:12] VITALS: BP 161/88; PULSE 90; RESP 14; O2SAT 96
== END 2024-12-07 15:13 | disposition home or self-care (01) ==
PROVIDERS: Emergency Provider Nurse Practitioner Family; PCP Family Medicine
DX: S01.311D Laceration without foreign body of right ear, subsequent encounter (principal); V86.55XD Driver of 3- or 4- wheeled all-terrain vehicle (ATV) injured in nontraffic accident, subsequent encounter; I10 Essential (primary) hypertension
CPT/HCPCS: 99282; 99281

== ENCOUNTER 2024-12-10 10:32 | Emergency (ER) | payer MEDICARE, BC, SELFPAY ==
[2024-12-10 10:38] VITALS: BP 169/90; PULSE 90; TEMP 26.5; O2SAT 93
[2024-12-10 11:12] VITALS: BP 142/80; PULSE 73; RESP 17; TEMP 36.8; O2SAT 97
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
== END 2024-12-10 11:16 | disposition home or self-care (01) ==
PROVIDERS: Emergency Provider Physician Assistant; PCP Family Medicine
DX: Z48.02 Encounter for removal of sutures (principal)

== ENCOUNTER 2025-03-11 13:21 | Outpatient (REF) | payer MEDICARE, BC, SELFPAY ==
[2025-03-11 15:33] LABS: ALT 32 U/L (10-49); AST 31 U/L (<34); Albumin 4.8 g/dL (3.2-5.0); Alkaline Phosphatase 71 U/L (46-116); Anion Gap 11.5 mmol/L (3-11); BUN 28 mg/dL (9-23); Bilirubin, Total 0.90 mg/dL (0.2-1.2); CO2 26.5 mmol/L (20.0-31.0); Calcium 9.0 mg/dL (8.3-10.6); Chloride 105 mmol/L (98-107); Glucose 182 mg/dL (74-106); Potassium 4.0 mmol/L (3.5-5.1); Sodium 143 mmol/L (136-145); Total Protein 7.1 g/dL (5.7-8.2)
[2025-03-11 15:52] LABS: Microalb ug/mg Crea 15.0 ug/mg Cr
== END 2025-03-11 13:22 | disposition home or self-care (01) ==
LOC: NCHCN 13:21
PROVIDERS: PCP Family Medicine; Visit Provider Family Medicine
DX: E11.9 Type 2 diabetes mellitus without complications (principal); I10 Essential (primary) hypertension
CPT/HCPCS: 80053; 82043; 82570